=== PATIENT | female | born 1970 | race Caucasian/White ===

== ENCOUNTER 2018-09-20 08:55 | Emergency (ER) | payer MEDICAID ==
[~2018-09-20] VITALS: Ht 165.1 cm; Wt 103.9 kg
[2018-09-20 09:08] VITALS: Ht 165.1 cm; Wt 103.9 kg
[2018-09-20 11:04] LABS: CALCIUM 8.6 mg/dL (8.5-10.1); CARBON DIOXIDE 28.8 mmol/L (21-32); CHLORIDE SERUM 102 mmol/L (98-107); CREATININE SERUM 0.6 mg/dL (0.6-1.0); GFR1 > 60 mL/min; GLUCOSE SERUM 111 mg/dL (74-106); POTASSIUM SERUM 4.7 mmol/L (3.5-5.1); SODIUM SERUM 137 mmol/L (136-145)
[2018-09-20 11:08] LABS: ALKALINE PHOSPHATASE 75 U/L (46-116); ALT/SGPT 10 U/L (14-59); AST/SGOT 8 U/L (15-37); BILIRUBIN TOTAL 0.27 mg/dL (0.20-1.00); LIPASE 179 IU/L (73-393); TOTAL PROTEIN, SERUM 7.4 g/dL (6.4-8.2)
[2018-09-20 11:14] LABS: BASOPHIL % 0.7 % (0-2); PLATELET COUNT 318 x10^3mcL (130-400)
[2018-09-20 11:16] LABS: RED CELL DISTRIBUTION WIDTH 20.7 % (11.5-14.5)
[2018-09-20 12:17] VITALS: BP 118/84
== END 2018-09-20 12:09 | disposition home or self-care (01) ==
LOC: ED 08:55
PROVIDERS: Emergency Medicine
DX: R10.11 Right upper quadrant pain (principal); Z88.1 Allergy status to other antibiotic agents; Z98.890 Other specified postprocedural states
CPT/HCPCS: J1885

== ENCOUNTER 2019-10-20 14:14 | Emergency (ER) | payer MEDICAID ==
[~2019-10-20] VITALS: Ht 165.1 cm; Wt 115.2 kg
[2019-10-20 14:21] VITALS: Ht 165.1 cm; Wt 115.2 kg
[2019-10-20 15:03] VITALS: BP 135/97
== END 2019-10-20 15:03 | disposition home or self-care (01) ==
LOC: ED 14:14
DX: L30.9 Dermatitis, unspecified (principal); Z98.890 Other specified postprocedural states; Z88.1 Allergy status to other antibiotic agents

== ENCOUNTER 2020-10-18 17:04 | Emergency (ER) | payer MEDICAID ==
[~2020-10-18] VITALS: Ht 165.1 cm; Wt 122.5 kg
[2020-10-18 19:13] VITALS: BP 172/73; Ht 165.1 cm; Wt 122.5 kg
[2020-10-18 20:30] LABS: CALCIUM 8.9 mg/dL (8.5-10.1); CARBON DIOXIDE 28.5 mmol/L (21-32); CHLORIDE SERUM 102 mmol/L (98-107); CREATININE SERUM 0.7 mg/dL (0.6-1.0); GFR1 > 60 mL/min; GLUCOSE SERUM 129 mg/dL (74-106); POTASSIUM SERUM 4.1 mmol/L (3.5-5.1); SODIUM SERUM 138 mmol/L (136-145)
[2020-10-18 20:32] LABS: BASOPHIL % 0.7 % (0.2-1.3); PLATELET COUNT 250 x10^3mcL (179-408)
[2020-10-18 20:35] LABS: ALBUMIN 3.8 g/dL (3.4-5.0); ALKALINE PHOSPHATASE 101 U/L (46-116); ALT/SGPT 29 U/L (14-59); AST/SGOT 25 U/L (15-37); BILIRUBIN TOTAL 0.2 mg/dL (0.20-1.00); LIPASE 136 IU/L (73-393); RED CELL DISTRIBUTION WIDTH 18.3 % (12.3-17.7); TOTAL PROTEIN, SERUM 7.9 g/dL (6.4-8.2)
[2020-10-18 20:36] LABS: rbc morphology (normal/abnorm) NORMAL (NORMAL)
== END 2020-10-18 21:16 | disposition home or self-care (01) ==
LOC: ED 17:04
PROVIDERS: Emergency Medicine
DX: K29.70 Gastritis, unspecified, without bleeding (principal); E66.9 Obesity, unspecified; Z88.1 Allergy status to other antibiotic agents; Z85.038 Personal history of other malignant neoplasm of large intestine